=== PATIENT | female | born 1960 | race Caucasian/White ===

== ENCOUNTER → 2017-01-01 | Outpatient (CLI) | payer OTHER ==
[~2017-01-01] MED LIST: ACETAMINOPHEN650 M3 PO; AGGRENOX1 CAP PO; AMITRIPTYLINE H25 MG PO; ASPIRIN81 M1 PO; ATENOLOL PO; ATENOLOL50 MG PO; ATORVASTATIN CA20 MG PO; CELEXA PO; CELEXA20 MG PO; CRESTOR PO; CYANOCOBAL1000 MCG/M INJ; CYMBALTA PO; FAMOTIDINE PO; GARLIC; HCTZ PO; HYDROCHLOROTH12.5 MG PO; HYDROCHLOROTHIA25 MG PO; IRON45 MG PO; LASIX PO; LASIX20 MG PO; LYRICA300 MG PO; LYRICA75 MG PO; METFORMIN HCL500 M1 PO; NICOTINE TRANSD21 MG EXT; NIFEREX-150150 MG PO; POTASSIUM1 UDCAP.SA PO; PRAVACHOL20 MG PO; PREDNISONE PO; REMERON PO; SERTRALINE HCL100 M1 PO; ST. JOSEPH ASPI81 M3 PO; VICODIN 5/500 T1 TAB PO; VIMOVO DR 500-1 EACH PO; VISTARIL PO; VIT B-12 PO; VITAL-D RX TABL1 TAB PO; VITAMIN B-121000 MC1 INJ; VITAMIN D-32000 UNIT PO; VITAMIN D5000 UNIT PO; VITAMIN D50000 UNIT PO
[2017-01-01 12:10] LABS: CHOLESTEROL 168 mg/dL (0-200); GLUCOSE FASTING 95 mg/dL (70-110); HDL CHOLESTEROL 44 mg/dL (35-95); LDL CHOLESTEROL 99 mg/dL (-130); LDL/HDL RATIO 2 RATIO (0-4); TRIGLYCERIDES 125 mg/dL (10-160)
== END | disposition home or self-care (01) ==
LOC: CLAB 09:37
PROVIDERS: Surgery
DX: E66.01 Morbid (severe) obesity due to excess calories (principal)
CPT/HCPCS: 36415; 80061; 82947

== ENCOUNTER 2017-04-19 23:09 | Emergency (ER) | payer OTHER ==
[~2017-04-19] VITALS: Ht 165.1 cm; Wt 95.2 kg
--- NOTE | ~2017-04-19 | CR181 ---
[facility] RADIOLOGY TEXT RESULTS PATIENT: NATIVIDAD HANNAH LOCATION: [facility] : 56 UNIT #: [id number] AGE: [address]: Rhonda Paredes APRN SEX: F ORDER DR: [id number] [facility] [address] [place], [place] [address] [id number] MR#: [id number] #: [id number] NAME: NATIVIDAD HANNAH. : 1960 SEX: F STUDY DATE/TIME: 04/20/2017 2:02 UNIT: [facility] ROOM: STUDY DESCRIPTION: CR Lumbar Spine 2 or 3 Views Attending Physician: Rhonda Paredes A.P.R.N. Ordering Physician: Rhonda Paredes A.P.R.N. Primary Care Physician: Orly rDew M.D. MEDICAL IMAGING REPORT This report is preliminary unless electronic signature is present EXAM Lumbar spine series INDICATION Lower back pain, chronic but worse tonight. PROCEDURE 4 views of the lumbar spine. COMPARISON None FINDINGS Lumbar bodies have normal height. Alignment is preserved. [id number] multilevel degenerative change throughout the lower thoracic and lumbar spine with multilevel facet arthrosis. IMPRESSION 1. No acute findings. 2. Multilevel degenerative change throughout the lower thoracic and lumbar spine. Dictated by... Momo Marinelli M.D. THIS IS AN ELECTRONICALLY VERIFIED REPORT Momo Marinelli M.D. at 04/20/2017 10:01 PM BATOOL/woody TD: 04/20/2017 10:03 JOB #: [id number] MEDICAL IMAGING REPORT [facility] RADIOLOGY TEXT RESULTS PATIENT: NATIVIDAD HANNAH LOCATION: [facility] : 56 UNIT #: [id number] AGE: [address]: Rhonda Paredes APRN SEX: F ORDER DR: Page 1 of 1 COPY
== END 2017-04-20 03:10 | disposition home or self-care (01) ==
LOC: CED 23:09
DX: M54.42 Lumbago with sciatica, left side (principal); I10 Essential (primary) hypertension; F17.210 Nicotine dependence, cigarettes, uncomplicated; Z86.73 Personal history of transient ischemic attack (TIA), and cerebral infarction without residual deficits
CPT/HCPCS: 72100; 96372; 99283; J1885